=== PATIENT | female | born 1940 | race Caucasian/White ===

== ENCOUNTER → 2024-02-11 09:33 | Outpatient (REF) | payer OTHER, SELFPAY | LOC: RAD 09:33 | PROVIDERS: ATTENDING PHYSICIAN Family Medicine | DX: R09.89 Other specified symptoms and signs involving the circulatory and respiratory systems (principal); R06.2 Wheezing; Z87.891 Personal history of nicotine dependence | CPT/HCPCS: 71046 ==

== ENCOUNTER → 2024-03-09 07:33 | Outpatient (REF) | payer OTHER, SELFPAY | LOC: RAD 07:33 | PROVIDERS: ATTENDING PHYSICIAN Internal Medicine Rheumatology; FAMILY PHYSICIAN Physician Assistant Medical | DX: M81.0 Age-related osteoporosis without current pathological fracture (principal) | CPT/HCPCS: 77080 ==

== ENCOUNTER → 2025-06-22 08:27 | Outpatient (REF) | payer OTHER, SELFPAY | LOC: RAD 08:27 | PROVIDERS: ATTENDING PHYSICIAN Physician Assistant Medical | DX: M25.552 Pain in left hip (principal) | CPT/HCPCS: 73502 ==